=== PATIENT | female | born 1975 | race Caucasian/White ===

== ENCOUNTER 2020-07-24 12:34 | Emergency (ER) | payer MEDICARE, MEDICAID, SELFPAY ==
[2020-07-24 12:50] VITALS: BP 123/83; PULSE 105; RESP 18; TEMP 37.1; O2SAT 97
--- NOTE | 2020-07-24 13:06 | ED.FEMALEGU ---
HPI - Female Genitourinary General Chief complaint: Urogenital-Female Stated complaint: uti Time Seen by Provider: 07/24/20 13:00 Source: patient and RN notes reviewed Mode of arrival: ambulatory Limitations: no limitations History of Present Illness HPI Narrative: Patient presents today with a 1 week history of dysuria, frequency, lower abdominal pressure, hematuria, with more recent mild low back pain. Denies nausea or vomiting, fever. No recent antibiotic use. She was using some Azo with mild relief. Last dose was yesterday. MD elicited complaint: dysuria Related Data Allergies Allergy/AdvReac Type Severity Reaction Status Date / Time Penicillins Allergy Mild Verified 03/18/14 17:11 Review of Systems Review of Systems: Narrative: CONSTITUTIONAL: Denies body aches, fever, chills, or sweats. EYES: Denies visual changes, redness, or discharge. ENT: Denies rhinorrhea, congestion, sore throat, or otalgia. CARDIOVASCULAR: Denies chest pain, palpitations, or edema. RESPIRATORY: Denies cough or dyspnea. GASTROINTESTINAL: Denies abdominal pain, nausea, vomiting, or diarrhea. GENITOURINARY: + Dysuria, hematuria, frequency, lower abdominal pressure. SKIN: Denies rash, itching, or wounds. MUSCULOSKELETAL: Denies joint pain, or myalgia. + Mild low back pain NEUROLOGIC: Denies headache, numbness, tingling, or weakness. PSYCH: Denies depression or anxiety. PMFSH Social History Social History Gender identity (if verbalized by the patient): Female Comments At time of signature, I have reviewed and agree with nursing past medical, surgical, social and family history unless otherwise noted. Please see nursing chart for further information. There is no relevant family history pertinent to the presenting complaint Exam Narrative: Exam Narrative: GENERAL: Well-appearing, well-nourished, and in no acute distress. HEAD: Normocephalic, atraumatic. EYES: EOMI. No redness or drainage. Conjunctivae normal. ENT: Mucous membranes pink and moist. NECK: Normal AROM. CHEST: No respiratory distress. Clear to auscultation. HEART: Regular rate and rhythm. No murmur appreciated. Normal peripheral pulses. ABDOMEN: Soft, nondistended, normal active bowel sounds. + Suprapubic tenderness. -CVAT MUSCULOSKELETAL: No bony tenderness. EXTREMITIES: Normal range of motion. No edema. SKIN: Warm, dry, no rash. Capillary refill normal. Normal skin turgor. NEURO: No focal deficits. Alert and oriented x3. Gait steady. PSYCH: Normal affect. No signs of depression or anxiety. Course Vital Signs Vital signs: Vital Signs Temperature 98.8 F 07/24/20 12:50 Pulse Rate 105 H 07/24/20 12:50 Respiratory Rate 18 07/24/20 12:50 Blood Pressure 123/83 07/24/20 12:50 Pulse Oximetry 97 07/24/20 12:50 Temperature 98.8 F 07/24/20 12:50 Pulse Rate 105 H 07/24/20 12:50 Respiratory Rate 18 07/24/20 12:50 Blood Pressure 123/83 07/24/20 12:50 Pulse Oximetry 97 07/24/20 12:50 Reviewed. Pt has been instructed to follow up with her PCP regarding her elevated blood pressure today. MDM - Female Genitourinary Differential Diagnosis Differential diagnosis: Likely urinary tract infection, cystitis and other (Pyelonephritis, interstitial cystitis) Lab Data Attestation: I reviewed the patient's lab results. Labs: Urine Glucose Negative Reference Range: Negative Urine Glucose Negative Reference Range: Negative Urine Bilirubin Negative Reference Range: Negative Urine Bilirubin Negative Reference Range: Negative Urine Ketone Negative Reference Range: Negative Urine Ketone Negative
== END 2020-07-24 13:11 | disposition home or self-care (01) ==
PROVIDERS: Emergency Provider Nurse Practitioner
DX: N30.01 Acute cystitis with hematuria (principal)
CPT/HCPCS: 81003; 87077; 87086; 87088; 87186; 99213; G0463

== ENCOUNTER 2022-04-06 16:00 | Emergency (ER) | payer MEDICARE, SELFPAY ==
[2022-04-06 16:14] VITALS: BP 112/66; PULSE 95; RESP 18; TEMP 36.7; O2SAT 98
--- NOTE | 2022-04-06 16:26 | ED.FEMALEGU ---
HPI - Female Genitourinary General Chief complaint: Urogenital-Female Stated complaint: Possible UTI Time Seen by Provider: 04/06/22 16:26 History of Present Illness HPI Narrative: Jammie Moncada is a 46 yo female with urinary tract infections and cervical fusion who comes to [facility] with burning and dysuria that started yesterday with pink streaking on the toilet tissue. She tried to hydrate her way through today but states she still has some symptoms so she came here for treatment Related Data Home Medications Medication Instructions Recorded Confirmed levonorgestrel 20 mcg/24 hours (7 See Rx Instructions .Route .COMPLEX 04/06/22 04/06/22 yrs) 52 mg intrauterine device (Mirena) Allergies Allergy/AdvReac Type Severity Reaction Status Date / Time No Known Allergies Allergy Verified 04/06/22 16:26 Review of Systems Review of Systems: CONSTITUTIONAL: Denies fever, chills, sweats. EYES: Denies visual changes, redness, discharge. ENT: Denies rhinorrhea, congestion, sore throat, otalgia. CARDIOVASCULAR: Denies chest pain, palpitations, edema. RESPIRATORY: Denies dyspnea, wheezing, cough GASTROINTESTINAL: Denies abdominal pain, nausea, vomiting, diarrhea. GENITOURINARY: Has dysuria, hematuria, abnormal discharge SKIN: Denies rash or itching. NEUROLOGIC: Denies numbness, or focal weakness. PSYCHIATRIC: Denies anxiety or depression. PMFSH Past Medical History Medical History Urinary tract infection Surgical History Surgical History History of fusion of cervical spine Social History Social History (Updated 04/06/22 @ 16:36 by Yari Romero CNP) Smoking packs per day: 1 Smoking cigarettes per day: 20.0 Smoking status: Current every day smoker Tobacco type: cigarettes Additional smoking assessment comments: Restarted smoking again Alcohol intake: current Gender identity (if verbalized by the patient): Female Comments At time of signature, I agree with nursing past medical, surgical, social and family history. There is no relevant family history pertinent to the presenting complaint. Exam Narrative: GENERAL: This is a well-nourished, well-developed patient, in mild distress. HEAD: normocephalic, atraumatic. EYES: Sclera clear/white. Vision is grossly intact. EARS: External ears normal. Hearing grossly intact. NOSE: External nose normal without nasal discharge, nares without redness, no rhinorrhea. THROAT: Mucous membranes moist, NECK: Neck supple, non-tender CARDIOVASCULAR: Regular rate and rhythm without murmurs, gallops, or rubs. RESPIRATORY: Clear to auscultation. Breath sounds equal bilaterally. No wheezes, rales, or rhonchi. GASTROINTESTINAL: Abdomen soft, non-tender, SKIN: warm, intact with no suspicious lesions or rash, good texture and turgor. NEURO: awake, alert, and oriented to person, place and time. There were no obvious focal neurologic abnormalities. Steady gait EXTREMITIES: Normal range of motion. BACK: Nontender without deformity Course Course Emergency Course: Patient has had symptoms of dysuria and pain yesterday she has been drinking water today and she is feeling bit better but she knows she needed to get some treatment for symptom Urine dipstick shows 1+ excite esterase and trace blood Started on Keflex twice daily x5 days; does not require any Diflucan because she does not get yeast infections Level of Care: Express Care Visit Vital Signs Vital signs: Vital Signs Temperature 98.0 F 04/06/22 16:14 Pulse Rate 95 04/06/22 16:14 Respiratory Rate 18 04/06/22 16:14 Blood Pressure 112/66 04/06/22 16:14 Pulse Oximetry 98 04/06/22 16:14 Oxygen Delivery Room Air 04/06/22 16:14 Temperature 98.0 F 04/06/22 16:14 Pulse Rate 95 04/06/22 16:14 Respiratory Rate 18 04/06/22 16:14 Blood Pressure 112/66 04/06/22 16:14
== END 2022-04-06 16:45 | disposition home or self-care (01) ==
PROVIDERS: Emergency Provider Nurse Practitioner
DX: N30.90 Cystitis, unspecified without hematuria (principal); F17.210 Nicotine dependence, cigarettes, uncomplicated
CPT/HCPCS: 81003; 87077; 87086; 87186; 99213; G0463